=== PATIENT | female | born 1970 | race Caucasian/White ===

== ENCOUNTER → 2016-04-23 | Outpatient (CLI) | payer BC ==
[~2016-04-23] MED LIST: LEVO175T3 PO; LISI-725 PO; LORA-741 PO; NAPR-1168 PO; SERT-234 PO; SIMV40TA2 PO
[2016-04-23 18:19] LABS: ALT/SGPT 22 U/L (12-78); BLOOD UREA NITROGEN 9 mg/dl (7-18); BUN/CREATININE RATIO 10.3 (10-20); CALCIUM 8.7 mg/dl (8.5-10.1); CARBON DIOXIDE 31 mmol/L (21-32); CHLORIDE 104 mmol/L (98-107); CHOLESTEROL 296 mg/dl (0-200); CREATININE 0.86 mg/dl (0.60-1.20); GLUCOSE 88 mg/dl (70-99); POTASSIUM 3.9 mmol/L (3.5-5.1); SODIUM 139 mmol/L (136-145)
[2016-04-23 18:30] LABS: ALB/GLOB RATIO 0.8 (0.9-2); ALKALINE PHOSPHATASE 36 U/L (45-117); AST/SGOT 15 U/L (15-37); CHOLESTEROL/HDL RATIO 7.8; HDL CHOLESTEROL 38 mg/dl; TRIGLYCERIDES 400 mg/dl (0-150)
== END | disposition home or self-care (01) ==
LOC: C.LABPVFM 11:30
PROVIDERS: ATTEND Nurse Practitioner
DX: E03.9 Hypothyroidism, unspecified (principal); I10 Essential (primary) hypertension; E78.5 Hyperlipidemia, unspecified

== ENCOUNTER → 2016-05-21 | Outpatient (CLI) | payer BC | END | disposition home or self-care (01) | LOC: C.PAPS 09:36 | PROVIDERS: ATTEND Nurse Practitioner | DX: Z01.419 Encounter for gynecological examination (general) (routine) without abnormal findings (principal) ==

== ENCOUNTER 2016-10-29 16:32 | Emergency (ER) | payer BC, OTHER ==
[~2016-10-29] VITALS: Ht 167.6 cm; Wt 114.6 kg
[2016-10-29 16:36] VITALS: BP 170/114; PULSE 71; TEMP 36.9; O2SAT 95; Ht 167.6 cm; Wt 114.6 kg
[2016-10-29] MEDS ORDERED: ACETAMINOPHEN 500 MG TAB PO STA (16:44)
--- NOTE | 2016-10-29 17:15 | EMERGENCY ROOM VISIT NOTE ---
History First contact with patient: 16:40 Chief Complaint: SHOULDER PAIN Stated Complaint: RT SHOULDER SORE-WC History of Present Illness The patient is a 46 year old female who presents to the Emergency Room via private vehicle accompanied by male with complaints of "right shoulder sore". The patient states that earlier today around 12 noon (at work), 12:30, she was lifting boxes up into the dumpster. She states that she was lifting them high above her head, and notes pain in the right shoulder. She also notes numbness in the right hand. She is right-handed. She denies any previous injury. She denies any chest pain, shortness of breath, fevers or chills. She declines pain medication. Review of Systems A complete 6-point Review of Systems was discussed with the patient, with pertinent positives and negatives listed in the History of Present Illness. All remaining Review of Systems questions can be considered negative unless otherwise specified. Past Medical/Surgical History Medical Problems: (1) chest pain (2) Diabetes (3) Heart disease (4) HTN (hypertension) Surgical Problems: (1) H/O thyroidectomy (2) History of cholecystectomy Family History FH: HTN (hypertension) FH: diabetes mellitus FH: gallbladder disease FH: heart disease Heart attack Social History Smoking Status: Current Every Day Smoker Alcohol Use: none Drug Use: none Marital Status: Housing Status: lives with family Current/Historical Medications Scheduled Levothyroxine Sodium (Levothyroxine Sodium), 175 MCG PO DAILY Lisinopril (Zestril), 20 MG PO DAILY Sertraline (Zoloft), 200 MG PO DAILY Simvastatin (Zocor), 40 MG PO QPM Scheduled PRN Lorazepam (Ativan), 0.5 MG PO Q12 PRN for Anxiety Allergies Coded Allergies: Sulfa Drugs (Verified Allergy, Mild, RASH, 03/19/15) Sulfamethoxazole (Verified Allergy, Mild, RASH, 03/19/15) Trimethoprim (Verified Allergy, Mild, RASH, 03/19/15) Physical Exam Vital Signs Date Time Temp Pulse Resp B/P (MAP) Pulse Ox O2 Delivery O2 Flow Rate FiO2 10/29/16 16:36 36.9 71 17 170/114 95 Room Air Physical Exam VITAL SIGNS - Vital signs and nursing notes were reviewed. Stable. GENERAL - 46-year-old female appearing her stated age who is in no acute distress. Communicates well with provider and answers questions appropriately. SKIN - Without rashes. No petechial rashes. HEAD - NC/AT. EYES - Sclera anicteric. EARS - No deformities of external structures noted on gross examination bilaterally. NOSE - Midline and without cyanosis. No epistaxis or purulent drainage noted. Septum midline without deviation or septal hematoma noted. MOUTH/OROPHARYNX - Without perioral cyanosis. NECK - Neck with FROM. No C-spine tenderness. LUNGS - Chest wall symmetric without accessory muscle use, intercostals retractions, or central cyanosis. Normal vesicular breath sounds CTA B/L. No wheezes, rales, or rhonchi appreciated. CARDIAC - RRR with S1/S2. No murmur, rubs, or gallops appreciated. EXTREMITIES - No clubbing or peripheral cyanosis. No pretibial edema present. + 5/5 strength noted in UE/LE bilaterally. There is tenderness to palpation overlying the right shoulder and deltoid region. No distal humerus, or forearm tenderness. There is near full range of motion of this region. Empty can test was concerning for that of a potential rotator cuff injury. She is neurovascularly intact in this region. Medical Decision & Procedures ER Provider Diagnostic Interpretation: RIGHT SHOULDER MIN 2 VIEWS ROUTINE HISTORY: 46 years-old Female Right shoulder pain s/p lifting heavy objects. Right acute right shoulder pain status post lifting injury. COMPARISON: Chest radiograph 03/19/2015 TECHNIQUE: 3 views of the right shoulder. FINDINGS: 10 x 6 mm ossified structure seen superior to the greater tuberosity. Mild acromioclavicular osteoarthritis is noted. No significant glenohumeral degenerative changes. There is no acute fracture or dislocation. Imaged lung elkins are clear. IMPRESSION: 1. No acute fracture or dislocation. 2. Mild acromioclavicular osteoarthritis. 3. 10 x 6 mm ossified structure superior to the greater tuberosity suggests calcific bursitis or calcific tendinosis. The above report was generated using voice recognition software. It may contain grammatical, syntax or spelling errors. Electronically signed by: Melvin Dumont M.D. 10/29/2016 5:27 PM Dictated Date/Time: 10/29/2016 5:24 PM Medications Administered Medications (Trade) Dose Ordered Sig/Faraz Route Start Time Stop Time Status Last Admin Dose Admin Acetaminophen (Tylenol Tab) 500 mg NOW STAT PO 10/29/16 16:44 10/29/16 16:45 DC 10/29/16 16:44 500 MG Medical Decision Patient was seen and evaluated as above. She presents to us today with right shoulder pain. X-rays are as above. No acute fracture. There is concern however on examination that she is injured the rotator cuff, therefore sling will be placed, and she is to follow-up with orthopedics but in the meantime is to be not using the right arm at work. She appears stable for outpatient management. She was educated upon worrisome symptoms which to return, had questions prior to discharge, and were discharged home in good condition. In the evaluation and treatment of this patient, the following differential diagnoses were considered: Shoulder Contusion, Shoulder Fracture, Shoulder Dislocation, Thoracic Outlet Syndrome, Adhesive Capsulitis, Rotator Cuff Tear, Proximal Clavicle Head Fracture, Apical Pneumonia, Pneumothorax, Hemothorax, or TB. Impression Primary Impression: Right shoulder injury Departure Information Dispostion Home / Self-Care Condition GOOD Referrals No Doctor, Assigned (PCP) Galdino Nichols, DO Patient Instructions [facility] Additional Instructions You have been treated in the Emergency Department for Shoulder Pain.. For pain control, you can use the following [id number] medicines: - Regular strength (325mg/tab) Tylenol (acetaminophen) 2 tabs every 4-6 hours as needed. Do not exceed 12 tablets in a 24 hour period. Avoid taking more than 3 grams (3000 mg) of Tylenol per day. This includes any other sources of acetaminophen you may take on a regular basis. - Regular strength (200 mg/tab) Advil (ibuprofen) 1-2 tabs every 4-6 hours as needed. Do not exceed a dose of 3200 mg per day. Please follow-up with the improved orthopedic individual regarding today's injury. If this is a recent injury (<24 hrs), ice can be applied to the area of pain for the first 3 days to help decrease pain and inflammation. You have been provided the number for an Orthopaedic Surgeon. You should call this number as soon as possible to establish a follow-up visit from today's Emergency Department visit. Keep the shoulder brace/sling in place until evaluated by Orthopedics. Continue to perform range of motion exercises several times per day to help prevent the development of a "frozen shoulder". Return to the Emergency Department if your current symptoms worsen despite treatment course outlined above, or if you develop any of the following symptoms : intractable pain despite aforementioned treatment course or new onset of numbness or tingling of the arm. Please return to emergency department with any new/concerning symptoms. RIGHT SHOULDER MIN 2 VIEWS ROUTINE HISTORY: 46 years-old Female Right shoulder pain s/p lifting heavy objects. Right acute right shoulder pain status post lifting injury. COMPARISON: Chest radiograph 03/19/2015 TECHNIQUE: 3 views of the right shoulder. FINDINGS: 10 x 6 mm ossified structure seen superior to the greater tuberosity. Mild acromioclavicular osteoarthritis is noted. No significant glenohumeral degenerative changes. There is no acute fracture or dislocation. Imaged lung elkins are clear.
--- NOTE | 2016-10-29 17:29 | DIAGNOSTIC IMAGING REPORT ---
RIGHT SHOULDER MIN 2 VIEWS ROUTINE HISTORY: 46 years-old Female Right shoulder pain s/p lifting heavy objects. Right acute right shoulder pain status post lifting injury. COMPARISON: Chest radiograph 03/19/2015 TECHNIQUE: 3 views of the right shoulder. FINDINGS: 10 x 6 mm ossified structure seen superior to the greater tuberosity. Mild acromioclavicular osteoarthritis is noted. No significant glenohumeral degenerative changes. There is no acute fracture or dislocation. Imaged lung elkins are clear. IMPRESSION: 1. No acute fracture or dislocation. 2. Mild acromioclavicular osteoarthritis. 3. 10 x 6 mm ossified structure superior to the greater tuberosity suggests calcific bursitis or calcific tendinosis. The above report was generated using voice recognition software. It may contain grammatical, syntax or spelling errors. Electronically signed by: Melvin Dumont M.D. 10/29/2016 5:27 PM Dictated Date/Time: 10/29/2016 5:24 PM
== END 2016-10-29 18:42 | disposition home or self-care (01) ==
LOC: C.EDB 16:33 → C.EDD 18:42
DX: S49.91XA Unspecified injury of right shoulder and upper arm, initial encounter (principal); X58.XXXA Exposure to other specified factors, initial encounter; E11.9 Type 2 diabetes mellitus without complications; I10 Essential (primary) hypertension; I51.9 Heart disease, unspecified; F17.200 Nicotine dependence, unspecified, uncomplicated; Z90.49 Acquired absence of other specified parts of digestive tract; Z79.899 Other long term (current) drug therapy; Z82.49 Family history of ischemic heart disease and other diseases of the circulatory system; Z83.3 Family history of diabetes mellitus; Z83.79 Family history of other diseases of the digestive system

== ENCOUNTER → 2017-01-02 | Outpatient (CLI) | payer BC ==
[~2017-01-02] MED LIST changes: -NAPR-1168 PO
== END | disposition home or self-care (01) ==
LOC: C.LAB1850 13:28
PROVIDERS: ATTEND Nurse Practitioner
DX: E03.9 Hypothyroidism, unspecified (principal)